=== PATIENT | female | born 1995 | race Caucasian/White ===

== ENCOUNTER 2019-02-05 11:06 | Emergency (ER) | payer MEDICAID ==
[~2019-02-05] VITALS: Ht 162.6 cm; Wt 60.3 kg
[~2019-02-05 11:06] MED LIST: NITR-58 PO
[2019-02-05 11:16] VITALS: Ht 162.6 cm; Wt 60.3 kg
[2019-02-05 13:12] VITALS: BP 119/70; PULSE 81; RESP 18
== END 2019-02-05 13:14 | disposition home or self-care (01) ==
LOC: FTE 11:06
DX: O20.9 Hemorrhage in early pregnancy, unspecified (principal); O23.41 Unspecified infection of urinary tract in pregnancy, first trimester; Z3A.00 Weeks of gestation of pregnancy not specified
CPT/HCPCS: 36415; 76801; 76817; 81001; 84702; 85025; 86900; 86901; Z7502

== ENCOUNTER 2019-02-07 07:36 | Emergency (ER) | payer MEDICAID ==
[~2019-02-07] VITALS: Ht 157.5 cm; Wt 59.9 kg
[2019-02-07 07:43] VITALS: Ht 157.5 cm; Wt 59.9 kg
[2019-02-07 09:33] VITALS: BP 120/60; PULSE 76; RESP 18
== END 2019-02-07 09:33 | disposition home or self-care (01) ==
LOC: FTE 07:36
DX: O20.0 Threatened abortion (principal); Z3A.01 Less than 8 weeks gestation of pregnancy
CPT/HCPCS: 36415; 76801; 76817; 84702; Z7502